=== PATIENT | female | born 1980 | race Caucasian/White ===

== ENCOUNTER 2016-10-19 12:09 | Outpatient (CLI) | payer OTHER ==
[~2016-10-19] VITALS: Ht 157.5 cm; Wt 66.1 kg
[~2016-10-19 12:09] MED LIST: PREN1TAB17 PO
[2016-10-19 12:17] VITALS: BP 114/64; RESP 16; Ht 157.5 cm; Wt 66.1 kg
[2016-10-19] MEDS ORDERED: LACTATED RINGER'S 1,000 ML IV SCH (15:00)
[2016-10-19 15:13] LABS: ADD SCAN DIFF NO
[2016-10-19 15:15] LABS: BASOPHILS % 0.1 % (0.0-2.0); EOSINOPHILS % 0.2 % (0.0-7.0); HEMATOCRIT 35.7 % (37.0-47.0); HEMOGLOBIN 12.5 g/dl (12.0-16.0); LYMPHOCYTES # 0.8 10^3/ul (0.8-2.9); MEAN CORPUSCULAR HEMOGLOBIN 33.2 pg (29.0-33.0); MEAN CORPUSCULAR VOLUME 94.9 fl (82.0-101.0); MONOCYTE # 0.4 10^3/ul (0.3-0.9); MONOCYTES % 3.1 % (0.0-11.0); NEUTROPHILS % 89.2 % (39.0-77.0); PLATELET COUNT 248 10^3/UL (140-415); RED BLOOD COUNT 3.76 10^6/ul (4.20-5.40); RED CELL DISTRIBUTION WIDTH 13.1 % (11.5-14.5); WHITE BLOOD COUNT 11.2 10^3/ul (4.8-10.8)
[2016-10-19 15:36] LABS: ALBUMIN 3.2 g/dl (3.3-4.9); POTASSIUM 3.4 mmol/L (3.5-5.1)
[2016-10-19 15:38] LABS: BILIRUBIN,INDIRECT 0.4 mg/dl (0-1.1); BILIRUBIN,TOTAL 0.4 mg/dl (0.2-1.3); CREATININE 0.36 mg/dl (0.44-1.00)
[2016-10-19 15:39] LABS: ALBUMIN/GLOBULIN RATIO 0.96; TOTAL PROTEIN 6.5 g/dl (6.1-8.1)
[2016-10-19 15:40] LABS: CALCIUM 8.4 mg/dl (8.4-10.2)
[2016-10-19 17:04] LABS: ADD UMIC NO; URINE BILIRUBIN (Dip) NEGATIVE (NEGATIVE); URINE BLOOD (Dip) NEGATIVE (NEGATIVE); URINE COLOR LT. YELLOW (YELLOW); URINE GLUCOSE (Dip) NEGATIVE (NEGATIVE); URINE KETONES (Dip) NEGATIVE (NEGATIVE); URINE LEUKOCYTE ESTERASE (Dip) NEGATIVE (NEGATIVE); URINE NITRITE (Dip) NEGATIVE (NEGATIVE); URINE TOTAL PROTEIN (Dip) NEGATIVE (NEGATIVE); URINE UROBILINOGEN (Dip) 0.2 E.U./dL (0.1-1.0)
--- NOTE | 2016-10-19 19:37 | CONS ---
Date/Time of Note Date/Time of Note DATE: 10/19/16 TIME: 19:02 Consultation Date/Type/Reason Admit Date/Time October 19, 2016 OB triage consult Reason for Consultation This patient is 35 years old 3 para 2 living 2 pulse deliveries vaginally with 2 date of 02/14/2017 which makes her 23 weeks and 1 day she came in complaining of abdominal pain vomiting diarrhea possible food poisoning . The symptoms started about 8 hours ago examining her she is a well-developed well-nourished lady no acute distress but does complain of abdominal pain. On exam her vital signs are normal blood pressure 114/64 pulse rate 116 respiration 18 and temperature 98.2 Her abdomen is soft no much of a contract heart tone is normal Laboratory Tests Test 10/19/16 14:55 White Blood Count 11.210^3/ul Red Blood Count 3.7610^6/ul Hemoglobin 12.5g/dl Hematocrit 35.7% Mean Corpuscular Volume 94.9fl Mean Corpuscular Hemoglobin 33.2pg Mean Corpuscular Hemoglobin Concent 35.0g/dl Red Cell Distribution Width 13.1% Platelet Count 81242^3/UL Mean Platelet Volume 9.0fl Neutrophils % 89.2% Lymphocytes % 7.0% Monocytes % 3.1% Eosinophils % 0.2% Basophils % 0.1% Nucleated Red Blood Cells % 0.0/100WBC Neutrophils # 10.010^3/ul Lymphocytes # 0.810^3/ul Monocytes # 0.410^3/ul Eosinophils # 0.010^3/ul Basophils # 0.010^3/ul Nucleated Red Blood Cells # 0.010^3/ul Urine Color LT. YELLOW Urine Clarity CLEAR Urine pH 8.0 Urine Specific [place] 1.020 Urine Ketones NEGATIVE Urine Nitrite NEGATIVE Urine Bilirubin NEGATIVE Urine Urobilinogen 0.2 E.U./dL Urine Leukocyte Esterase NEGATIVE Urine Hemoglobin NEGATIVE Urine Glucose NEGATIVE% Urine Total Protein NEGATIVE Sodium Level 137mmol/L Potassium Level 3.4mmol/L Chloride Level 105mmol/L Carbon Dioxide Level 22mmol/L Anion Gap 13 Blood Urea Nitrogen 7mg/dl Creatinine 0.36mg/dl Glucose Level 94mg/dl Calcium Level 8.4mg/dl Total Bilirubin 0.4mg/dl Direct Bilirubin 0.00mg/dl Indirect Bilirubin 0.4mg/dl Aspartate Amino Transf (AST/SGOT) 23IU/L Alanine Aminotransferase (ALT/SGPT) 24IU/L Alkaline Phosphatase 63IU/L Total Protein 6.5g/dl Albumin 3.2g/dl Globulin 3.30g/dl Albumin/Globulin Ratio 0.96 Current Medications Medications (Trade) Dose Ordered Sig/Ayanna Route PRN Reason Start Time Stop Time Status Last Admin Dose Admin Lactated Ringer's (Lr) 1,000 ml @ 125 mls/hr Q8H IV 10/19/16 15:00 10/19/16 15:21 125 MLS/HR Hx of Present Illness On reviewing her lab study the liver panel is basically normal on the electrolyte the potassium was slightly low 3.4 and normal is 3.5-5.1 mmol/L albumin slightly the rest of the test including creatinine AST ALT and alkaline phosphorus 8 bilirubin and the rest of the electrolytes are all within normal limits her CBC is normal except except for slightly elevated WBC of 11.2 urinalysis is completely normal IV hydration was given in the amount of 3 hours patient feels better and will be discharged home Constitutional: No chills, No diaphoresis, No disoriented, No febrile, No improved, No no complaints, No other, No poor po, No requiring IVF, No requiring O2 Eyes: No discharge, No no complaints, No other, No pain, No redness, No visual change ENT: No bleeding, No congestion, No discharge, No dysphagia, No no complaints, No other, No pain, No sore throat Respiratory: No cough, No no complaints, No other, No pain, No pleuritic pain, No shortness of breath, No sputum, No wheezing Gastrointestinal: nausea, other (As I mentioned slight abdominal pain as well as nausea no more diarrhea), No blood, No constipation, No decreased appetite, No diarrhea, No flatus, No no complaints, No pain, No passing stool, No vomiting Genitourinary: No bleeding, No discharge, No dysuria, No flank pain, No hematuria, No no complaints, No other Musculoskeletal: No back pain, No bone/joint pain, No neck pain, No no complaints, No other, No restricted range of motion, No swelling Skin: No bruising, No erythema, No laceration, No no complaints, No other, No pruritis, No rash, No skin lesions Neurologic: No confusion, No dizziness, No focal-weakness, No headache, No no complaints, No other, No seizure, No syncope Endocrine: No dry skin, No no complaints, No other, No polydypsia, No polyuria , No temp intolerance Lymphatic: No adenopathy, No lymphadema, No no complaints, No other, No tender nodes Additional Comments With this finding the patient was reassured and was discharged home Dr. Coker was informed Should return to Dr. Coker's office for follow-up Social History Smoking Status: Never smoker Exam/Review of Systems Vital Signs Vitals Vital Signs Date Time Temp Pulse Resp B/P Pulse Ox O2 Delivery O2 Flow Rate FiO2 10/19/16 12:17 98.2 16 114/64 Results Result Diagram: 10/19/16 1455 10/19/16 1455 Results 24 hrs Laboratory Tests Test 10/19/16 14:55 White Blood Count 11.2 H Red Blood Count 3.76 L Hemoglobin 12.5 Hematocrit 35.7 L Mean Corpuscular Volume 94.9 Mean Corpuscular Hemoglobin 33.2 H Mean Corpuscular Hemoglobin Concent 35.0 Red Cell Distribution Width 13.1 Platelet Count 248 Mean Platelet Volume 9.0 Neutrophils % 89.2 H Lymphocytes % 7.0 L Monocytes % 3.1 Eosinophils % 0.2 Basophils % 0.1 Nucleated Red Blood Cells % 0.0 Neutrophils # 10.0 H Lymphocytes # 0.8 Monocytes # 0.4 Eosinophils # 0.0 Basophils # 0.0 Nucleated Red Blood Cells # 0.0 Urine Color LT. YELLOW Urine Clarity CLEAR Urine pH 8.0 Urine Specific [place] 1.020 Urine Ketones NEGATIVE Urine Nitrite NEGATIVE Urine Bilirubin NEGATIVE Urine Urobilinogen 0.2 E.U./dL Urine Leukocyte Esterase NEGATIVE Urine Hemoglobin NEGATIVE Urine Glucose NEGATIVE Urine Total Protein NEGATIVE Sodium Level 137 Potassium Level 3.4 L Chloride Level 105 Carbon Dioxide Level 22 Anion Gap 13 Blood Urea Nitrogen 7 Creatinine 0.36 L Glucose Level 94 Calcium Level 8.4 Total Bilirubin 0.4 Direct Bilirubin 0.00 Indirect Bilirubin 0.4 Aspartate Amino Transf (AST/SGOT) 23 Alanine Aminotransferase (ALT/SGPT) 24 Alkaline Phosphatase 63 Total Protein 6.5 Albumin 3.2 L Globulin 3.30 H Albumin/Globulin Ratio 0.96 Medications Medications Current Medications Lactated Ringer's (Lr) 1,000 ml @ 125 mls/hr Q8H IV Last administered on t 15:21; Admin Dose 125 MLS/HR; Start 10/19/16 at 15:00 CINDY MALONE MD October 19, 2016 19:36
== END 2016-10-19 19:02 | disposition home or self-care (01) ==
LOC: OBT 12:09 → L-D 12:11 → OBT 19:02
PROVIDERS: ATTEND Obstetrics & Gynecology
DX: O26.892 Other specified pregnancy related conditions, second trimester (principal); R10.9 Unspecified abdominal pain; R19.7 Diarrhea, unspecified; O21.2 Late vomiting of pregnancy; Z3A.23 23 weeks gestation of pregnancy
CPT/HCPCS: 80053; 81003; 85025; J7120

== ENCOUNTER 2017-02-09 10:51 | Inpatient (IN) | payer OTHER ==
[~2017-02-09] VITALS: Ht 157.5 cm; Wt 75.0 kg
[2017-02-09] VITALS (7 sets, daily range): BP systolic 101–112; BP diastolic 56–73; PULSE 85–104; RESP 17–20; Ht 157.5 cm; Wt 75.0 kg
[~2017-02-09 10:51] MED LIST changes: +EPHEDrine SULFATE 50 MG/5 ML SYG ONE; +OXYTOCIN 30 UNITS/LR 500 ML BAG IV ONE
[2017-02-09] MEDS ORDERED: CEFAZOLIN 2 GM/50 ML (PMX) 50 ML IV SCH (11:30)
[2017-02-09] MEDS ORDERED: METHYLERGONOVINE 0.2 MG INJ IM PRN ×2 (11:30→18:30)
[2017-02-09] MEDS ORDERED: CARBOPROST 250 MCG INJ IM PRN ×2 (11:30→18:30)
[2017-02-09] MEDS ORDERED: OXYTOCIN 30 UNITS/LR 500 ML IV SCH (11:30)
[2017-02-09] MEDS ORDERED: MISOPROSTOL 200 MCG TAB PR PRN ×2 (11:30→18:30)
[2017-02-09] MEDS ORDERED: OXYTOCIN 30 UNITS/LR 500 ML IV PRN ×2 (11:30→18:30)
[2017-02-09] MEDS: LACTATED RINGER'S 1,000 ML IV SCH ×3 (11:47→22:32)
[2017-02-09 12:21] LABS: BASOPHILS % 0.1 % (0.0-2.0); EOSINOPHILS # 0.1 10^3/ul (0.0-0.5); EOSINOPHILS % 0.9 % (0.0-7.0); HEMATOCRIT 33.9 % (37.0-47.0); HEMOGLOBIN 11.3 g/dl (12.0-16.0); LYMPHOCYTES # 2.3 10^3/ul (0.8-2.9); LYMPHOCYTES % 23.6 % (15.0-51.0); MEAN CORPUSCULAR HEMOGLOBIN 29.7 pg (29.0-33.0); MEAN CORPUSCULAR HGB CONC 33.3 g/dl (32.0-37.0); MEAN PLATELET VOLUME 9.3 fl (7.4-10.4); MONOCYTE # 0.7 10^3/ul (0.3-0.9); NEUTROPHILS % 68.1 % (39.0-77.0); PLATELET COUNT 288 10^3/UL (140-415); RED BLOOD COUNT 3.81 10^6/ul (4.20-5.40); RED CELL DISTRIBUTION WIDTH 13.4 % (11.5-14.5); WHITE BLOOD COUNT 9.8 10^3/ul (4.8-10.8)
[2017-02-09 12:42] LABS: INR 0.91; PARTIAL THROMBOPLASTIN TIME 24.2 Sec (25.0-35.0); PROTIME 12.2 Sec (12.2-14.2)
[2017-02-09] MEDS ORDERED: morphine SULFATE/PF (10 MG/10 ML) INJ ONE (13:24)
[2017-02-09] MEDS ORDERED: OXYCODONE/ACETAMINOPHEN (5/325) TAB PO PRN ×3 (13:30→18:30)
[2017-02-09] MEDS ORDERED: ALBUTEROL 0.083% (NEB) 2.5 MG/3 ML AMP HHN PRN (13:30)
[2017-02-09] MEDS ORDERED: DIPHENHYDRAMINE 50 MG INJ IV PRN ×3 (13:30→18:30)
[2017-02-09] MEDS ORDERED: NALOXONE (0.4 MG/ML) INJ IV PRN (13:30)
[2017-02-09] MEDS ORDERED: ONDANSETRON 4 MG INJ IV PRN ×3 (13:30→18:30)
[2017-02-09] MEDS ORDERED: FENTAnyl 50 MCG/ML VIAL IV PRN ×3 (13:30)
[2017-02-09] MEDS ORDERED: ZOLPIDEM 5 MG TAB PO PRN ×2 (13:30→18:30)
[2017-02-09] MEDS ORDERED: HYDROmorphONE (0.2 MG/ML) 10ML SYG IV PRN ×3 (13:30)
[2017-02-09] MEDS ORDERED: MEPERIDINE 25 MG INJ IV PRN (13:30)
[2017-02-09] MEDS ORDERED: HYDROmorphONE 1 MG/ML SYG IV PRN ×2 (13:30)
[2017-02-09] MEDS ORDERED: KETOROLAC 30 MG INJ IV PRN ×2 (13:30)
[2017-02-09] MEDS ORDERED: METOCLOPRAMIDE 10 MG INJ IV PRN (13:30)
[2017-02-09] MEDS ORDERED: PHENYLephrine (100 MCG/ML) 5ML SYG ONE ×2 (13:32→14:09)
[2017-02-09] MEDS ORDERED: LANOLIN 7 GM TUBE TOP PRN (18:30)
[2017-02-09] MEDS: SENNA/DOCUSATE NA (8.6MG/50MG) TAB PO SCH (20:19)
[2017-02-10 04:00] VITALS: BP 100/62; PULSE 81; RESP 18
[2017-02-10] MEDS: IBUPROFEN 600 MG TAB PO SCH ×5 (06:00→23:47)
[2017-02-10] MEDS: LACTATED RINGER'S 1,000 ML IV SCH ×3 (06:10→21:25)
[2017-02-10 08:40] VITALS: BP 101/53; PULSE 73; RESP 17
[2017-02-10] MEDS: SENNA/DOCUSATE NA (8.6MG/50MG) TAB PO SCH ×2 (09:04→21:24)
[2017-02-10 09:27] LABS: BASOPHILS % 0.1 % (0.0-2.0); EOSINOPHILS % 0.1 % (0.0-7.0); HEMATOCRIT 32.2 % (37.0-47.0); HEMOGLOBIN 10.7 g/dl (12.0-16.0); LYMPHOCYTES % 13.8 % (15.0-51.0); MEAN CORPUSCULAR HGB CONC 33.2 g/dl (32.0-37.0); MEAN CORPUSCULAR VOLUME 90.2 fl (82.0-101.0); MEAN PLATELET VOLUME 9.1 fl (7.4-10.4); MONOCYTE # 1.1 10^3/ul (0.3-0.9); MONOCYTES % 7.8 % (0.0-11.0); NEUTROPHILS % 77.9 % (39.0-77.0); PLATELET COUNT 278 10^3/UL (140-415); RED BLOOD COUNT 3.57 10^6/ul (4.20-5.40); RED CELL DISTRIBUTION WIDTH 13.2 % (11.5-14.5); WHITE BLOOD COUNT 14.6 10^3/ul (4.8-10.8)
--- NOTE | 2017-02-10 10:38 | HP ---
Date/Time of Note Date/Time of Note DATE: 02/10/17 TIME: 10:33 OB - History Hx of Present Free Text/Dictation 35 y.o who had x2 previous section came for elective repeat section at 39w2d patient had unevenful course . admitted for repeat low transverse section. Chief Complaint: RC/S Estimated Due Date: Feb 14, 2017 : 3 Para: 2 Spontaneous : 0 Therapeutic : 0 Care: Good Care Ultrasounds: Normal mid trimester US Obstetrical Complications: None Medical Complications: None Past Family/Social History * Past Medical, Surgical, Family and Obstetric Histories reviewed from chart. Blood Type: A+ Rubella: immune RPR/VDRL: Negative GBS Status: Negative HBsAG: Negative OB Admission Exam Vital Signs Vital Signs Vital Signs Date Time Temp Pulse Resp B/P Pulse Ox O2 Delivery O2 Flow Rate FiO2 02/10/17 04:00 98.8 81 18 100/62 Room Air 02/10/17 01:11 96 21 Physical Exam HEENT: WNL Heart: Rhythm Normal Lungs: Clear, Equal Abdomen: WNL Extremities: Normal Reflexes: Normal Cervical Dilatation: None Effacement: 0% Station: -3 Membranes: Intact Amniotic Fluid: Unevaluable Heart Rate: 120's Accelerations: Accelerations Present Decelerations: No Decelerations Varibility: Moderate Contractions on Admission: >10 Minutes Apart Intensity: Mild Last 72 hours Lab Results CBC & BMP 02/09/17 11:40 02/10/17 09:04 OB Assessment/Plan Reason for admission: section Other Assessment: IUP 39w3d with X2 previous section Plan: Section TAN STARKEY MD Feb 10, 2017 10:38
--- NOTE | 2017-02-10 12:06 | OPR ---
Operative Report Planned Procedure Free Text/Dictation x2 previous section Procedure date Feb 09 2017 Procedure(s) repeat low transverse section Performed by: TAN STARKEY MD Assisting provider: CINDY MALONE MD Anesthesiologist: RUFUS DEL ANGEL Pre-procedure diagnosis IUP 39w2d with 2 previous section Anesthesia Type: spinal Procedure Description Under satisfactory [] anesthesia, the patient was prepped and draped and placed in a supine position, tilted to the left. Pfannenstiel incision was made, carried through the subcutaneous tissue. Bleeders brought under control with electrocautery. Fascia incised to the length of the incision. Rectus muscles from the fascia, divided midline. Peritoneum exposed, entered through a transverse incision. Exploration of abdomen revealed gravid uterus. omental adhesion noted major portion of parietal peritoneum Transverse incision was made in the lower segment of the uterusafter remove the blockage from adhesion . Amniotic sac ruptured. []clear amniotic fluid noted. normal female infant was born from garett with assit of kijaclyn briefly.[] Nasal oropharyngeal suction was performed. The baby was handed to the team for immediate attention. The placenta was delivered manually intact. Uterine cavity was cleaned with dry sponge Uterus closed in 2 layers using #1 and 0 ch gut b] in continuous fashion. Peritoneal cavity irrigated with warm saline. Sponge, needle and instrument count reported to be correct then interceed wsa laid on the anterior aspect of uterus where the most omental adhesion along with filmny adhesion. Abdominal peritoneum closed with [00ch gut] continuously. Rectus muscle approximated with [00 ch gut ]. Fascia closed with [#1 vicryl and susbcut was approximated with 00) plain gut], and skin closed with insorb . Estimated blood loss [600]mL. Urine bag contained 300]mL of urine Post-Procedure Post-procedure diagnosis IUP 39w2d with previous section delivered normal infant pelvic adhesion Findings: Live Baby []female, Apgars []8 and []9, weight [], position [garett ], [] presentation vx]cord. Specimen removed: No Complications: None Pt Condition post procedure: stable Disposition: PACU Physician Certification I, the undersigned physician, hereby certify that I have discussed the procedure described in this consent form with this patient (or the patient's legal bilingual call center representative), including: * The risk and benefits of the procedure; * Any adverse reactions that may reasonably be expected to occur; * Any alternative efficacious methods of treatment which may be medically viable ; * The potential problems that may occur during recuperation; * Potential for blood transfusion and associated risks/benefits; and * Any research or economic interest I may have regarding this treatment. I further certify that the patient/legally responsible person was encouraged to ask question and that all questions were answered. TAN STARKEY MD Feb 10, 2017 12:06
[2017-02-10 12:30] VITALS: BP 109/51; PULSE 83; RESP 17
[2017-02-10 19:40] VITALS: BP 100/60; PULSE 89; RESP 18
[2017-02-11 04:00] VITALS: BP 105/64; PULSE 88; RESP 17
[2017-02-11] MEDS: IBUPROFEN 600 MG TAB PO SCH ×3 (05:45→18:06)
[2017-02-11] MEDS: LACTATED RINGER'S 1,000 ML IV SCH ×3 (05:46→21:29)
[2017-02-11 08:20] VITALS: BP 99/53; PULSE 75; RESP 16
[2017-02-11] MEDS: SENNA/DOCUSATE NA (8.6MG/50MG) TAB PO SCH ×2 (08:43→21:29)
[2017-02-11 16:30] VITALS: BP 122/61; PULSE 92; RESP 17
[2017-02-11 19:50] VITALS: BP 114/67; PULSE 94; RESP 18
--- NOTE | 2017-02-11 20:17 | PN ---
Date/Time of Note Date/Time of Note DATE: 02/11/17 TIME: 20:12 OB Subjective Subjective Subjective had severe headahe complete relief after blood patch passing flatus OB Objective Objective Objective vss afebrile abdomen soft wound dry lochia min calf neg for tenderness HEENT: WNL Heart: Rhythm Normal Lungs: Clear, Equal Abdomen: WNL Extremities: Normal Reflexes: Normal OB Assessment/Plan Other Assessment: stable post #2repeat section Other plan: discharge home in am TAN STARKEY MD Feb 11, 2017 20:16
[2017-02-12] MEDS: IBUPROFEN 600 MG TAB PO SCH ×2 (00:13→05:56)
[2017-02-12 04:00] VITALS: BP 97/50; PULSE 73; RESP 18
[2017-02-12] MEDS: LACTATED RINGER'S 1,000 ML IV SCH (05:56)
--- NOTE | 2017-02-12 07:18 | PD.PPDC ---
SILK SNAPPER Discharge Instruction Diagnosis Final Diagnosis: s/p repeat section Condition Patient Condition: Stable Diet Diet: Resume Regular Diet Activity/Restrictions Activity: October Shower Restrictions: No Exercising No Lifting Minimize Stair-climbing No Sexual Activity Nothing in the Vagina No [place] No Tampons, douche Wound/Drain Care Instructions Wound/Drain Care Instructions: Wash with soap and water Keep clean and dry Follow-up Follow-up with Physician: 2, Week/Weeks Return to clinic for MANAGER SEARCH Instructions: Fever greater than 101 Chills Worsening abdominal pain Excessive Vaginal Bleeding More than 2 pads per hour Unable to tolerate diet OB Instructions: Breast Tenderness Depression Blurried Vision Headache Surgical Instructions: Incisional Drainage Incisional Redness TAN STARKEY MD Feb 12, 2017 07:18
--- NOTE | 2017-02-12 08:03 | DS ---
Date/Time of Note Date/Time of Note DATE: 02/12/17 TIME: 08:00 Obstetrical Discharge Record Final Diagnosis Final Diagnosis: Term delivered Section Section: Repeat Complications Augmentation: No Induction: No Rupture of Membranes: No Condition on Discharge Physical Assessment Last Vitals: vss afebrile Voiding: Yes Bowel Movement: Yes Breast: Soft, non-tender Fundus: Firm Abdomen and Incision: abdomen soft wound dry Calf Tenderness: No Patient Condition: Stable TAN STARKEY MD Feb 12, 2017 08:03
[2017-02-12 08:35] VITALS: BP 95/63; PULSE 79; RESP 18
[2017-02-12] MEDS: SENNA/DOCUSATE NA (8.6MG/50MG) TAB PO SCH (08:50)
[2017-02-12] MEDS ORDERED: DIPHTH/TET/ACEL PERTUSS (ADULT) 0.5 ML VIAL IM* ONE (09:00)
--- NOTE | 2017-02-14 07:47 | CONS ---
Date/Time of Note Date/Time of Note DATE: 02/14/17 TIME: 07:46 Consultation Date/Type/Reason Admit Date/Time Feb 09, 2017 at 10:51 Initial Consult Date 02/10/17 Type of Consultation: Anesthesiology Reason for Consultation follow up 24 HR Interval Summary Free Text/Dictation Pt seen and examined at bedside on 02/10/17 is s/p repeat c/s. Pt received spinal duramorph for post-op pain control without complications. She denies any N/V/C/D /MUNOZ/Numbness in extremities. Will follow. Constitutional: improved, no complaints Exam/Review of Systems Vital Signs Vitals Vital Signs Date Time Temp Pulse Resp B/P Pulse Ox O2 Delivery O2 Flow Rate FiO2 02/12/17 08:35 97.7 79 18 95/63 Room Air 02/10/17 10:55 99 21 Results Result Diagram: 02/10/17 0904 Results 24 hrs Laboratory Tests Test 02/13/17 08:36 Lab Scanned Report REFERENCE LAB RUFUS DEL ANGEL Feb 14, 2017 07:47
== END 2017-02-12 12:25 | disposition home or self-care (01) | DRG 766 ==
LOC: L-D 10:51 → PP1 18:02
PROVIDERS: ADMIT Obstetrics & Gynecology; ATTEND Obstetrics & Gynecology
PROC: 10D00Z1 Extraction of Products of Conception, Low, Open Approach (ICD-10-PCS; principal; 2017-02-09 12:30)
PROC: 3E0R3GC Introduction of Other Therapeutic Substance into Spinal Canal, Percutaneous Approach (ICD-10-PCS; 2017-02-11)
DX: O34.211 Maternal care for low transverse scar from previous cesarean delivery (principal); O75.89 Other specified complications of labor and delivery; R51 Headache; Z37.0 Single live birth; Z3A.39 39 weeks gestation of pregnancy
CPT/HCPCS: 85025; 85610; 85730; 86592; 86850; 86900; 86901; 87340; 90715; 94760; 99464; J0690; J1885; J2274; J2370; J2405; J2590; J3010; J7120